=== PATIENT | female | born 1965 | race Caucasian/White ===

== ENCOUNTER 2016-09-16 13:24 | Emergency (ER) | payer OTHER ==
[2016-09-16] MEDS ORDERED: NORMAL SALINE 10 ML SYRINGE FLUSH IVP PRN (13:41)
[2016-09-16] MEDS ORDERED: Sodium Chloride 0.9% 500 ML PRIMARY IV ONE (13:41)
[2016-09-16] MEDS ORDERED: diphenhydrAMINE 50 MG/1 ML VIAL IVP ONE (13:41)
[2016-09-16] MEDS ORDERED: Prochlorperazine Edisylate Inj 10mg/2ml vial IVP ONE (13:41)
[2016-09-16 13:57] VITALS: RESP 16; TEMP 98.4
[2016-09-16 14:22] LABS: BASOPHILS # (AUTO) 0.03 10*3/UL; BASOPHILS % (AUTO) 0.2 % (0-1); EOSINOPHILS # (AUTO) 0 10*3/UL; EOSINOPHILS % (AUTO) 0 % (0-8); HEMATOCRIT 53.5 % (37.0-47.0); HEMOGLOBIN 18.1 g/dL (12.0-16.0); LYMPHOCYTES # (AUTO) 1.67 10*3/uL; MEAN CORPUSCULAR HEMOGLOBIN 33.3 PG (27-31); MEAN CORPUSCULAR HGB CONC 33.8 g/dL (33-37); MEAN PLATELET VOLUME 10.6 FL (7.4-12.2); MONOCYTES # (AUTO) 1.41 10*3/UL (0.3-0.8); MONOCYTES % (AUTO) 7.5 % (5-15); NEUTROPHILS # (AUTO) 15.54 10*3/UL; RED BLOOD COUNT 5.44 10^6/uL (4.20-5.40)
[2016-09-16 14:28] LABS: PLATELET MORPHOLOGY COMMENT NORMAL MORPHOLOGY (NORM); RBC MORPHOLOGY COMMENT NORMAL MORPHOLOGY (NORM); WBC MORPHOLOGY COMMENT NORMAL MORPHOLOGY (NORM)
--- NOTE | 2016-09-16 14:28 | PDOC ---
Neuro Symptoms / Deficit HPI - General Chief Complaint: Neurological Complaints Stated Complaint: NUMBNESS, STROKE SYMPTOMS Date Seen by Provider: 09/16/16 Time Seen by Provider: 13:25 Source: POSITIVE: Patient Exam Limitations: POSITIVE: No limitations Nurse's Notes Reviewed & Considered: Yes - History of Present Illness Initial Comments: The patient is a 51-year-old female who presents to the emergency department with the chief complaint of headache. She states that she has known issues with her neck and back and is currently in the process of being scheduled to have surgery on her lower neck and upper back per Dr. Alejo in [place]. She states this is to remove a cyst along the spine. She also has known disc issues. She states that yesterday she moved her arm and felt a pop in the right side of her neck. Afterward she had some increased numbness in her right arm. She was evaluated at the hospital in [place] and diagnosed with a cervical radiculopathy. She was given a shot of Solu-Medrol as well as Dilaudid there. She states when she went home she was feeling good. Last night however she had development of headache which is primarily right-sided and behind her right eye. She was able to sleep and when she is sleeping her pain seems less however when she gets up and moves around the pain intensifies. She has continued pain behind her right eye as well as a little bit of numbness sensation around the right eye. She is sensitive to light as well. She also feels somewhat dizzy when she stands up. She denies any associated chest pain or shortness of breath. She does have a history of factor V Leiden deficiency and has had 2 previous strokes. In addition she has a known aortic aneurysm which is currently being monitored and is not large enough to require surgery yet. She is normally on a blood thinner however she has been off for 2 days secondary to her upcoming neck and back surgery. She has had multiple imaging studies of her neck and back recently. She is somewhat concerned about the possibility of a recurrent stroke as well as the possibility of the steroid causing her current symptoms. - Patient Home Medications Home Medications: Home Medications Cyclobenzaprine HCl [Flexeril] 10 mg PO TID 09/16/16 Famotidine [Pepcid] 20 mg PO DAILY 09/16/16 Furosemide [Lasix] 80 mg PO DAILY 09/16/16 Gabapentin 300 mg PO TID 09/16/16 HYDROcodone/APAP 7.5/325 Tab [[place] 7.5/325 Tab] 1 - 2 tab PO Q4H PRN PRN Ibuprofen 800 mg PO QID 09/16/16 Levothyroxine Sodium 100 mcg PO DAILY 09/16/16 Methylprednisolone [Medrol] 4 mg PO DAILY 09/16/16 Nebivolol HCl [Bystolic] 50 mg PO BID 09/16/16 Prochlorperazine Maleate [Compazine] 10 mg PO Q6H PRN #10 tablet 09/16/16 oxyCODONE/APAP 5/325 Tab [Percocet 5/325 Tab] 1 tab PO Q6H PRN 09/16/16 - Patient Allergies Allergies/Adverse Reactions: Allergies Allergy/AdvReac Type Severity Reaction Status Date / Time aspirin Allergy NOT Verified 09/16/16 13:37 APPLICABLE butorphanol Allergy NOT Verified 09/16/16 13:37 APPLICABLE cephalexin monohydrate Allergy NOT Verified 09/16/16 13:37 [From Keflex] APPLICABLE ketorolac tromethamine Allergy NOT Verified 09/16/16 13:37 [From Toradol] APPLICABLE latex Allergy NOT Verified 09/16/16 13:37 APPLICABLE naproxen sodium Allergy NOT Verified 09/16/16 13:37 [From Anaprox] APPLICABLE Penicillins Allergy NOT Verified 09/16/16 13:37 APPLICABLE Sulfa (Sulfonamide Allergy NOT Verified 09/16/16 13:37 Antibiotics) APPLICABLE sumatriptan [From Imitrex] Allergy NOT Verified 09/16/16 13:37 APPLICABLE sumatriptan succinate Allergy NOT Verified 09/16/16 13:37 [From Imitrex] APPLICABLE promethazine HCl AdvReac HALLUCINATI Verified 09/16/16 14:18 [From Phenergan] ONS Past Medical History - heen HEENT History: Denies History Cardiovascular History: Hypertension, Aneurysm Additional Cardiovasular History: [place], CVA X2, CURRENT ABD ANEURYSM Respiratory History: Denies History Gastrointestinal History: Gallbladder Disease Genitourinary History: Denies History Endocrine History: Hypothyroidism Musculoskeletal History: Arthritis, Back Pain, Back Injury Prosthesis or Implant: Yes Neurological History: CVA Blood Disorders: Clotting Disorders Additional Blood Disorders History: FACTOR 5 DEFICIENCY, NOT CURRENTLY TAKING BLOOD THINNERS. Psychiatric History: Denies History Female Reproductive History: Denies History Obstetrical History: Delivery Additional Obstetrical History: X4 Cancer History: Other (please comment) In Past Year Been Physically Harmed or Verbally Threatened: No History of MDRO: No Tobacco Use: Current Every Day Smoker Alcohol Use: Rarely Substance Use Type: None Previous Surgical History: Yes Type / Date of Surgery: HYSTERECTOMY, CARDIAC STENTS X4, ABD HERNIA REPAIRS, C- SECTIONS X4, R ANKLE, BACK, NECK X3, THYROID CA, NICOL, UTERINE CA, CLOT REMOVED FROM BRAIN THROUGH FEMORAL ARTERY. Anesthesia Reactions: No Malignant Hyperthermia: No Family History of Malignant Hyperthermia: No Significant Family History: No pertinent family hx Past Medical History Reviewed: Reviewed - No Changes ROS - Limitations ROS Limitations: No Limitations Constitution: DENIES: Chills, Fever Cardiovascular: REPORTS: Edema (Chronic edema for which she takes Lasix). DENIES: Chest Pain, Heart Palpitations Respiratory: DENIES: Shortness Of Breath Neurological: REPORTS: Headache, Dizziness, Numbness (Right arm and some numbness around her right eye). DENIES: Weakness Gastrointestinal: REPORTS: Denies GI Symptoms, Nausea. DENIES: Vomitting Endocrine: REPORTS: Denies Symptoms Eyes: REPORTS: Denies Symptoms ENT: REPORTS: Denies Symptoms Skin: DENIES: Rash Neuro Symptoms / Deficit Exam - General Appearance General Appearance: POSITIVE: No Acute Distress, Alert - HEENT HEENT: POSITIVE: Head Inspection Nml, Eyes Inspection Nml, Ears Inspection Nml, Nose Inspection Nml, Pharynx Inspect. Nml - Neuro / Psych Higher Functions: POSITIVE: Oriented to Person, Oriented to Place, Oriented to Time, Normal Speech, Normal Cognition Cranial Nerves: POSITIVE: Normal As Tested Peripheral Exam: POSITIVE: Sensation Normal, Motor Normal - Neck Neck: POSITIVE: Supple. NEGATIVE: Cervical Lymphadenopathy - Respiratory Respiratory: POSITIVE: No Respiratory Distress, Breath Sounds Normal - Cardiovascular Cardiovascular: POSITIVE: Regular Rate & Rhythm, Heart Sounds Normal Peripheral Pulses: Radial (R): 2+, Radial (L): 2+ - Abdomen Abdomen: Soft: (All Quadrants), Denies Tenderness: (All Quadrants), No Distention: (All Quadrants) - Skin Skin: POSITIVE: Intact. NEGATIVE: No Rash - Extremities Extremity: Normal ROM: (All Extremities), Normal Inspection: (All Extremities) Neuro Symptom/Deficit Progress - Results Reviewed by me Xrays/CTs/US Reviewed by me: Yes Discussed with Radiologist: Yes Radiology Findings: CT scan of her head is normal per radiologist. Lab Results Reviewed: Yes Lab Results:: Laboratory Results 09/16/16 Range/Units 14:17 WBC 18.72 H (4.8-10.8) 10^3/uL RBC 5.44 H (4.20-5.40) 10^6/uL Hgb 18.1 H (12.0-16.0) g/dL Hct 53.5 H (37.0-47.0) % MCV 98.3 (81-99) FL MCH 33.3 H (27-31) PG MCHC 33.8 (33-37) g/dL RDW Std Deviation 54.8 H (39-50) fL RDW Coeff of Haider 15.1 H (11.5-14.5) % Plt Count 208 (140-350) 10*3/uL MPV 10.6 (7.4-12.2) FL Immature Gran % (Auto) 0.4 (0-5) % Neut % (Auto) 83.0 H (50-80) % Lymph % (Auto) 8.9 L (10-50) % Swisher % (Auto) 7.5 (5-15) % Eos % (Auto) 0 (0-8) % Baso % (Auto) 0.2 (0-1) % Immature Gran # (Auto) 0.07 10*3/UL Neut # (Auto) 15.54 10*3/UL Lymph # (Auto) 1.67 10*3/uL Swisher # (Auto) 1.41 H (0.3-0.8) 10*3/UL Eos # (Auto) 0 10*3/UL Baso # (Auto) 0.03 10*3/UL WBC Morphology Comment Normal morphology (NORM) Plt Morphology Comment Normal morphology (NORM) RBC Morph Comment Normal morphology (NORM) D-Dimer 0.44 (0.00-0.59) mg/L Sodium 141 (135-145) meq/L Potassium 3.6 L (3.8-5.2) meq/L Chloride 101 (98-112) meq/L Carbon Dioxide 29 (23-33) meq/L Anion Gap 11 (5-20) BUN 27 H (7-22) mg/dL Creatinine 0.9 (0.50-1.20) mg/dL Estimated GFR > 60 (>60 ml/min/1.73m(2)) BUN/Creatinine Ratio 30.00 H (6-20) Glucose 125 H (78-110) mg/dL Calculated Osmolality 297.0 H (267-292) mOsm/kg Calcium 9.7 (8.7-10.7) mg/dL Total Bilirubin 0.8 (0.3-1.2) mg/dL AST 35 (8-39) IU/L ALT 50 (9-52) IU/L Alkaline Phosphatase 111 (38-126) IU/L C-Reactive Protein 0.9 (0.0-0.9) mg/dL Total Protein 8.8 H (6.1-8.0) g/dL Albumin 4.4 (3.5-4.8) g/dL Globulin 4.4 H (2.50-4.10) g/dL Albumin/Globulin Ratio 1.00 L (1.3-2.0) mg/g Ur Collection Type Voided specimen Urine Color Yellow Urine Clarity Clear (CLEAR) Urine pH 6.0 (5.0-8.5) Ur Specific Orange 1.010 (1.005-1.030) Urine Protein Negative (NEG) mg/dl Urine Glucose (UA) Negative (NEG) mg/dL Urine Ketones Negative (NEG) Urine Occult Blood Trace-lysed H (NEG) Urine Nitrate Negative (NEG) Urine Bilirubin Negative (NEG) Urine Urobilinogen 0.2 (0.2) EU/dL Ur Leukocyte Esterase Trace (NEG) Urine RBC 0-1 (NONE) /hpf Urine WBC 0-1 (NONE) Ur Squamous Epith Cells Few (NONE) Ur Renal Epithelial Cell None (NONE) Urine Crystals None Urine Bacteria None (NONE) Urine Casts None (NONE) Urine Mucus None (NONE) Urine Trichomonas None (NONE) Urine Yeast None (NONE) Ur Culture Indicated? Culture not set - Patient's Progress MDM / ED Course: An IV was established and the patient did receive Benadryl 25 mg IV and Compazine 5 mg IV for treatment of headache. Her headache improved significantly. Her CT head was normal and her lab work was all essentially unremarkable except for an elevated white blood cell count which is thought to be secondary to administration of Solu-Medrol yesterday. At this point her headache is most consistent with a tension headache or migraine likely triggered from her neck issues. She had been prescribed a Medrol Dosepak however is reluctant to take this as she is fearful that her headache may have been triggered by some degree from the Solu-Medrol. At this point she was advised that it was reasonable to discontinue the Medrol Dosepak. She is advised to rest and push fluids. She was given a prescription for Compazine which can be used in combination with Benadryl if she develops recurrent headache. She is advised return to the emergency room if she develops any worsening headache, any worsening or change in symptoms. She is advised follow- up with primary care in 3-5 days. - Consult Counseled: POSITIVE: Patient, RE: Lab Results, RE: Radiology Results, RE: DX, RE : Need for F/U Patient Care Time - Estimated PCT Patient Care Time (In Minutes): 25 Vital Signs - VS Reviewed Vital Signs Reviewed: Yes Discharge Clinical Impression: Headache Discharge Disposition: Discharged to Home Condition: Stable Prescriptions / Orders: Prochlorperazine Maleate [Compazine] 10 mg PO Q6H PRN #10 tablet PRN Reason: Headache Patient Instructions Given at Discharge: Acute Headache (ED) Additional Instructions: The CAT scan was normal and your blood work was all essentially normal except for an elevated white blood cell count which is thought to be secondary to the administration of steroid yesterday. The headache is most likely a tension headache or migraine headache triggered by her neck. It is also possible that the steroid dose could've contributed some to the headache. Because of this concern it would be okay to discontinue the Medrol dose pack for now. Recommend rest and push fluids as this will most likely alleviate the headache. You have been prescribed Compazine 10 mg which can be taken in combination with Benadryl 25-50 mg as needed for recurrent headache. Return to the emergency room if any worsening or change in symptoms. Follow Up With: NONE,NONE [Primary Care Provider] -
[2016-09-16 14:30] LABS: BILIRUBIN,URINE NEGATIVE (NEG); CLARITY,URINE CLEAR (CLEAR); COLOR,URINE YELLOW; GLUCOSE, URINE (UA) NEGATIVE (NEG); NITRATE,URINE NEGATIVE (NEG); OCCULT BLOOD,URINE Trace-lysed (NEG); PROTEIN,URINE NEGATIVE (NEG); UROBILINOGEN,URINE 0.2 EU/dL (0.2)
[2016-09-16 14:34] LABS: URINE SAMPLE TYPE VOIDED SPECIMEN
--- NOTE | 2016-09-16 14:34 | DI ---
CT HEAD SCAN WITHOUT IV CONTRAST, 09/16/2016 1:42 PM : Clinical History: Headache. Previous Exam: None at this facility. Scans are obtained from the foramen magnum to the vertex without IV contrast. The 4th, 3rd, and lateral ventricles are of normal size, shape, position, and contour for the patient 's age. There are no abnormal areas of increased or decreased density. Specifically, there is no evid ence of an acute hemorrhagic or bland infarct. There is mild cerebral atrophy appropriate for the pat ient's age. There are no extracerebral mantles or shift of the midline structures. Bone window evalua tion is normal. The paranasal sinuses are normal. READIN. Normal non contrast CT head scan. 2. Mild cerebral atrophy.
[2016-09-16 14:35] LABS: RBC,URINE 0-1 /hpf; SQUAMOUS EPITHELIAL CELL,UR FEW; WBC,URINE 0-1
[2016-09-16 14:37] LABS: BLOOD UREA NITROGEN 27 mg/dL (7-22); C-REACTIVE PROTEIN 0.9 mg/dL (0.0-0.9); CALCIUM 9.7 mg/dL (8.7-10.7); EST GLOMERULAR FILTRATION > 60 (>60 ml/min/1.73m(2)); SERUM ALBUMIN 4.4 g/dL (3.5-4.8)
== END 2016-09-16 15:02 | disposition home or self-care (01) ==
LOC: ER 13:24
DX: R51 Headache (principal); R20.0 Anesthesia of skin; R42 Dizziness and giddiness; D68.51 Activated protein C resistance; Z72.0 Tobacco use
CPT/HCPCS: 70450; 80053; 81001; 81003; 85025; 85379; 86140; 96361; 96374; 96375; 99283 ×2; J1200; J0780; J7030

== ENCOUNTER 2018-06-24 19:05 | Observation (INO) ==
[2018-06-24] MEDS ORDERED: Sodium Chloride 0.9% 1,000 ML PRIMARY IV ONE (19:19)
[2018-06-24] MEDS ORDERED: MORPHINE SULFATE 4 MG/1 ML IVP ONE (19:19)
[2018-06-24] MEDS ORDERED: ONDANSETRON 4 MG/2 ML VIAL IVP ONE (19:19)
[2018-06-24] MEDS ORDERED: LORazepam 2 MG/1 ML VIAL IVP ONE (19:19)
[2018-06-24] MEDS ORDERED: NITROGLYCERIN 0.4 MG SL TAB (BOTTLE OF 3) SL ONE (19:21)
--- NOTE | 2018-06-24 19:24 | PDOC ---
Chest Pain HPI - General Chief Complaint: Chest Pain Stated Complaint: heart palpitions Date Seen by Provider: 06/24/18 Time Seen by Provider: 19:18 Source: Patient Exam Limitations: POSITIVE: No limitations Treatment Prior to Arrival: REPORTS: None Nurse's Notes Reviewed & Considered: Yes - History of Present Illness Initial Comments: This is a well-developed, obese, 53-year-old female, complaining of chest pain and shortness of breath. Patient with history of 2 MIs, 4 cardiac stents, and DVT comes in complaining of chest pain and shortness of breath that is been ongoing for 1 week and getting worse. Patient states it started out as palpitations of her heart and has progressed to chest pain that she describes as pressure with radiation to her shoulder as well as shortness of breath. She den ies any headache, no sore throat, no nausea vomiting or diarrhea, no rashes, no myalgias or arthralgias. Body Location Affected: REPORTS: Chest Timing: REPORTS: Constant, Changing Over Time Duration: >1 week Severity: Severe Context: REPORTS: Activity, Exertion Quality: REPORTS: "Pain", Pressure Radiation: REPORTS: Shoulder (L) Associated Symptoms: REPORTS: Shortness of Breath Modifying Factors: improves with: None Reported Similar Symptoms Previously: Yes Recently seen/treated/hospitalized: No Any Prior Injuries Related to Current Complaint?: Yes (2 myocardial infarctions and cardiac stents) - Patient Home Medications Home Medications: Home Medications Furosemide [Lasix] 80 mg PO DAILY 09/16/16 Gabapentin 300 mg PO TID 09/16/16 HYDROcodone/APAP 7.5/325 Tab [[place] 7.5/325 Tab] 1 - 2 tab PO Q4H PRN PRN 09/16/16 Ibuprofen 800 mg PO QID 09/16/16 Levothyroxine Sodium 200 mcg PO DAILY 09/16/16 Hydrocodone/Acetaminophen [Hydrocodon-Acetaminoph 7.5-325] 1 ea PO Q8H PRN #25 tab 06/25/17 Albuterol 17 gm IH PRN PRN 04/06/18 Budesonide/Formoterol Fumarate [SYMBICORT] 160 mcg INH PRN PRN 04/06/18 Clopidogrel Bisulfate [Plavix] 75 mg PO DAILY 04/06/18 Warfarin Sodium [Coumadin] 5 mg PO DAILY 04/06/18 Warfarin Sodium [Coumadin] 10 mg PO DAILY 04/06/18 - Patient Allergies Allergies/Adverse Reactions: Allergies Allergy/AdvReac Type Severity Reaction Status Date / Time Penicillins Allergy Severe Anaphylaxis Verified 06/24/18 19:45 Sulfa (Sulfonamide Allergy Severe Anaphylaxis Verified 06/24/18 19:45 Antibiotics) aspirin Allergy NOT Verified 06/24/18 19:45 APPLICABLE butorphanol Allergy NOT Verified 06/24/18 19:45 APPLICABLE cephalexin monohydrate Allergy ITCHING Verified 06/24/18 19:45 [From Keflex] ketorolac tromethamine Allergy NOT Verified 06/24/18 19:45 [From Toradol] APPLICABLE latex Allergy NOT Verified 06/24/18 19:45 APPLICABLE naproxen sodium Allergy NOT Verified 06/24/18 19:45 [From Anaprox] APPLICABLE sumatriptan [From Imitrex] Allergy NOT Verified 06/24/18 19:45 APPLICABLE sumatriptan succinate Allergy NOT Verified 06/24/18 19:45 [From Imitrex] APPLICABLE prednisone AdvReac Intermediate HIVES Verified 06/24/18 19:45 fentanyl AdvReac NOT Verified 06/24/18 19:45 [From Sublimaze (PF)] APPLICABLE promethazine HCl AdvReac HALLUCINATI Verified 06/24/18 19:45 [From Phenergan] ONS Past Medical History - heen HEENT History: Denies History Cardiovascular History: Hypertension, Aneurysm Additional Cardiovasular History: CT, CVA X2, CURRENT ABD ANEURYSM Respiratory History: Home Oxygen Use Additional Respiratory History: INTUBATED 04/21 Gastrointestinal History: Gallbladder Disease Genitourinary History: Denies History Endocrine History: Hypothyroidism Musculoskeletal History: Arthritis, Back Pain, Back Injury Prosthesis or Implant: Yes Neurological History: CVA Blood Disorders: Clotting Disorders Additional Blood Disorders History: FACTOR 5 DEFICIENCY, Psychiatric History: Denies History Cancer History: Other (please comment) History of MDRO: No Alcohol Use: Rarely In the Past 12 Months, Have Used or Abuse Any Substance: None Previous Surgical History: Yes Type / Date of Surgery: HYSTERECTOMY, CARDIAC STENTS X4, ABD HERNIA REPAIRS, C- SECTIONS X4, R ANKLE, BACK, NECK X3, THYROID CA, NICOL, UTERINE CA, CLOT REMOVED FROM BRAIN THROUGH FEMORAL ARTERY. Anesthesia Reactions: No Malignant Hyperthermia: No Significant Family History: No pertinent family hx ROS - Limitations ROS Limitations: No Limitations Constitution: REPORTS: Denies Symptoms Cardiovascular: REPORTS: Chest Pain Respiratory: REPORTS: Shortness Of Breath Neurological: REPORTS: Denies Neuro Symptoms Gastrointestinal: REPORTS: Denies GI Symptoms Endocrine: REPORTS: Denies Symptoms Musculoskeletal: REPORTS: Denies MS Symptoms Genitourinary: REPORTS: Denies Symptoms Eyes: REPORTS: Denies Symptoms ENT: REPORTS: Denies Symptoms Skin: REPORTS: Denies Skin Symptoms Lympathic: REPORTS: Denies Lympathic Symptoms Immunologic: POSITIVE: Denies Symptoms Psychiatric: POSITIVE: Anxiety Chest Pain PE - General Appearance General Appearance: REPORTS: Alert, Cooperative, No Evidence of Trauma, Severe Distress - HEENT HEENT: POSITIVE: Head Inspection Nml, Eyes Inspection Nml, Ears Inspection Nml, Nose Inspection Nml, Oral/Dental Inspect. Nml, Pharynx Inspect. Nml, PERRL, EOMI - Neck Neck: REPORTS: Normal Inspection - Respiratory Respiratory: REPORTS: No Respiratory Distress, Chest Non-Tender, Other (Decreased respiratory excursion with diminished breath sounds bilaterally) - Cardiovascular Cardiovascular: REPORTS: Regular Rate and Rhythm, Heart Sounds Normal, Strong Pulses, No Murmur, No Gallop, No Friction Rub, No JVD Peripheral Pulses: Radial (L): 3+ - Abdomen Abdomen: Soft: (All Quadrants), Normal Bowel Sounds: (All Quadrants), Denies Tenderness: (All Quadrants), No Splenomegaly: (All Quadrants), No Hepatomegaly: (All Quadrants), No Guarding: (All Quadrants), No Rebound: (All Quadrants), No Palpable Pulse: (All Quadrants), No Palpabale Mass: (All Quadrants), No Distention: (All Quadrants), No Rigidity: (All Quadrants) - Skin Skin: REPORTS: Intact, Normal For Race, Warm, Dry, No Rash - Extremities Extremity: Non-Tender: (All Extremities), Normal ROM: (All Extremities), Normal Inspection: (All Extremities), Pelvis Stable: (All Extremities) - Neurological / Psychological Neurological: POSITIVE: Affect Apporpriate, Oriented X3, Motor Normal, Sensation Normal Chest Pain Progress - Results Reviewed by me Xrays/CTs/US Reviewed by me: Yes Discussed with Radiologist: Yes Lab Results Reviewed by Me: Yes CBC and BMP: 06/24/18 19:25 06/24/18 19:25 Lab Results:: Laboratory Results 1206/24/18 06/24/18 19:25 19:25 19:25 WBC 7.84 RBC 5.69 H Hgb 14.4 Hct 45.5 MCV 80.0 L MCH 25.3 L MCHC 31.6 L RDW Std Deviation 67.9 H RDW Coeff of Haider 23.7 H Plt Count 214 MPV 10.6 Immature Gran % (Auto) 0.3 Neut % (Auto) 63.5 Lymph % (Auto) 25.4 [place] % (Auto) 7.7 Eos % (Auto) 2.7 Baso % (Auto) 0.4 Immature Gran # (Auto) 0.02 Neut # (Auto) 4.99 Lymph # (Auto) 1.99 [place] # (Auto) 0.60 Eos # (Auto) 0.21 Baso # (Auto) 0.03 WBC Morphology Comment Normal morphology Plt Morphology Comment See comments RBC Morph Comment Normal morphology D-Dimer 0.39 Sodium 143 Potassium 3.4 L Chloride 106 Carbon Dioxide 28 Anion Gap 9 BUN 24 H Creatinine 0.9 Estimated GFR > 60 BUN/Creatinine Ratio 26.66 H Glucose 110 Calculated Osmolality 300.0 H Calcium 9.6 Magnesium 1.9 Total Bilirubin 0.7 AST 48 H ALT 56 H Alkaline Phosphatase 131 H CK-MB (CK-2) Troponin I Handheld C-Reactive Protein 1.0 H NT-Pro-B Natriuret Pep 98.1 Total Protein 9.1 H Albumin 4.6 Globulin 4.5 H Albumin/Globulin Ratio 1.00 L TSH 06/24/18 06/24/18 19:25 19:25 WBC RBC Hgb Hct MCV MCH MCHC RDW Std Deviation RDW Coeff of Haider Plt Count MPV Immature Gran % (Auto) Neut % (Auto) Lymph % (Auto) [place] % (Auto) Eos % (Auto) Baso % (Auto) Immature Gran # (Auto) Neut # (Auto) Lymph # (Auto) [place] # (Auto) Eos # (Auto) Baso # (Auto) WBC Morphology Comment Plt Morphology Comment RBC Morph Comment D-Dimer Sodium Potassium Chloride Carbon Dioxide Anion Gap BUN Creatinine Estimated GFR BUN/Creatinine Ratio Glucose Calculated Osmolality Calcium Magnesium Total Bilirubin AST ALT Alkaline Phosphatase CK-MB (CK-2) 0.73 Troponin I Handheld 0.010 C-Reactive Protein NT-Pro-B Natriuret Pep Total Protein Albumin Globulin Albumin/Globulin Ratio TSH 1.51 - Patient's Progress Re-Examine Time: 20:48 Status: POSITIVE: Improved - Consult Consult (If Yes, Name of Consulting MD & Time Called): Yes (Dr. Satnos, cardiology. Dr. Barrett, hospitalist) Consulting MD will see pt:: POSITIVE: [facility] Admit Counseled: POSITIVE: Patient, RE: Lab Results, RE: Radiology Results, RE: DX, RE: Need for F/U Patient Care Time - Estimated PCT Patient Care Time (In Minutes): 45 Vital Signs - VS Reviewed Vital Signs Reviewed: Yes Discharge Clinical Impression: Chest pain Discharge Disposition: Admit to Observation Condition: Stable Patient Instructions Given at Discharge: Angina (ED) Follow Up With: RAMAN RUIZ [Primary Care Provider] - Date Decision to Admit to Inpatient: 06/24/18 Time Decision to Admit to Inpatient: 20:48
[2018-06-24 19:29] LABS: BASOPHILS # (AUTO) 0.03 10*3/UL; BASOPHILS % (AUTO) 0.4 % (0-1); EOSINOPHILS # (AUTO) 0.21 10*3/UL; EOSINOPHILS % (AUTO) 2.7 % (0-8); Hematocrit [HCT] 45.5 % (37.0-47.0); Hemoglobin [HGB] 14.4 g/dL (12.0-16.0); LYMPHOCYTES # (AUTO) 1.99 10*3/uL; MEAN CORPUSCULAR HEMOGLOBIN 25.3 PG (27-31); MEAN CORPUSCULAR HGB CONC 31.6 g/dL (33-37); MEAN PLATELET VOLUME 10.6 FL (7.4-12.2); MONOCYTES % (AUTO) 7.7 % (5-15); NEUTROPHILS # (AUTO) 4.99 10*3/UL; NEUTROPHILS % (AUTO) 63.5 % (50-80); RED BLOOD COUNT 5.69 10^6/uL (4.20-5.40)
[2018-06-24 19:39] LABS: BLOOD UREA NITROGEN 24 mg/dL (7-22); BUN/CREATININE RATIO 26.66 (6-20); SERUM ALBUMIN 4.6 g/dL (3.5-4.8)
[2018-06-24 19:46] LABS: PLATELET MORPHOLOGY COMMENT SEE COMMENTS (NORM); RBC MORPHOLOGY COMMENT NORMAL MORPHOLOGY (NORM); WBC MORPHOLOGY COMMENT NORMAL MORPHOLOGY (NORM)
--- NOTE | 2018-06-24 20:22 | DI ---
EXAM: XR Chest, 1 View CLINICAL HISTORY: ITS.REASON cp Physician Notes: Tech Comments: TECHNIQUE: Frontal view of the chest. COMPARISON: 05/18/18 FINDINGS: Lungs: Subsegmental atelectasis in the lower lungs. Slight interstitial prominence. Pleural space: Unremarkable. No pneumothorax. Heart: Cardiomegaly. Pulmonary venous congestion. Mediastinum: Unremarkable. Bones/joints: Unremarkable. IMPRESSION: 1. Cardiomegaly with pulmonary venous congestion. Slight interstitial prominence could indicate early/mild edema. 2. Mild subsegmental atelectasis. No visualized consolidation or significant effusion currently.
--- NOTE | 2018-06-24 21:25 | EKG ---
[address] [place] [address] Measurements Intervals [place] Rate: 95 P: 55 OR: 200 QRS: 87 QRSD: 116 T: 30 QT: 384 QTc: 437 Interpretive Statements SINUS RHYTHM WITH OCCASIONAL VENTRICULAR PREMATURE COMPLEXES LEFT ATRIAL ENLARGEMENT INCOMPLETE RIGHT BUNDLE BRANCH BLOCK ST DEVIATION AND MODERATE T-WAVE ABNORMALITY, CONSIDER ANTERIOR ISCHEMIA Compared to ECG 05/03/2018 22:18:04 Ventricular premature complex(es) now present Incomplete right bundle-branch block now present Possible ischemia now present First degree AV block no longer present T-wave abnormality still present Electronically Signed On 06-25-18 14:06:[address] [facility] by Lars Patel [email or web address]
[2018-06-24 21:27] LABS: VENOUS PH 7.46 (7.32-7.42)
--- NOTE | 2018-06-24 21:45 | PDOC ---
HPI - History of Present Illness Date of Service: 06/24/18 Time of Service: 22:00 Chief Complaint: Episode of chest pain resolved. History of Present Illness: This is a 53 years old female with medical history significant for history of hypertension, coronary artery disease with previous DE had four previous stents the last one was April 2017 done in [place], abdominal aortic aneurysm size about 5.2 cm she's been followed up in [place], COPD on oxygen, hypothyroidism on replacement, chronic pain syndrome who presented to the hospital with history of chest pain felt in the anterior chest described as something sitting on her chest and felt also in the neck with shortness of breath, dizziness and nausea the episode lasted about 10 minutes. She said she was watching TV when this thing happened. She did report that she started to have symptoms since she was charged from [place] back in early May. She noticed the symptoms to happen after the dosage of the levothyroxine increased from 100 MCG to 125 MCG a day. She's been having the pain in the chest since mid-May having it maybe every other day, it would last for a few minutes and resolve. About 3 weeks ago she had an episode that lasted for about 2 hours for which she took nitroglycerin after her son convincing her to do that. She was in [place] as a result of her having a respiratory failure and TIA she needed intubation and she stayed in [place] for about 11 days. She was on a vent for 4 days. When she came into the ER this time the blood pressure was elevated she was given morphine and Ativan and nitroglycerin. She feels better now compared to when she came in. She did say that her physician cut back on the dosage of her pain medication from 2 tab 4 times a day to 1 tab 4 times a day after she was discharged from [facility]. The last time she had a pain medication was this morning and she ran out on those. She contacted her primary who wrote a prescription for Catapres and Vistaril. She is due for refilling of her medication on Wednesday. Past Medical History Medical History: 1. Coronary artery disease with 2 previous DE that required stents. The last one was April 2017 done in [place]. She had a total of 4 stents according to her. 2. History of abdominal aortic aneurysm being followed up in [place] this was discovered 2 years ago, she supposed to see a vascular surgeon July 18. 3. History of COPD on oxygen between 4-6 L a minute. 4. History of hypertension. 5. 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 6. TIA in April 2018. 7. Respiratory failure secondary to TIA and fluid overloaded sounded that needed intubation in April she was transferred to [facility] stayed there for about 11 days. She was intubated for about 4 days. 8. History of thyroid cancer that needed thyroidectomy currently on thyroid replacement Surgical History: 1. History of 3 previous back surgeries. 2. Hysterectomy. 3. Thyroidectomy for thyroid cancer. 4. Pertinent Family History: Positive family history of coronary artery disease Past Social History: Lives in [place] with her son. Currently smoke half a pack a day that lasted 2 days, doesn't drink, she used to do drugs that was more than 20 years ago. Tobacco Use: Current Every Day Smoker Do you dip or chew tobacco: No In the Past 12 Months, Have Used or Abuse Any of the Following Substance: None Alcohol Use: None Medication / Allergies Home Medications: Home Medications Medication Instructions Recorded Confirmed Type Furosemide [Lasix] 80 mg PO DAILY 09/16/16 06/24/18 History Gabapentin 100 mg PO TID 09/16/16 06/24/18 History HYDROcodone/APAP 7.5/325 Tab 1 - 2 tab PO Q4H PRN PRN 09/16/16 06/24/18 History [[place] 7.5/325 Tab] Ibuprofen 800 mg PO QID 09/16/16 06/24/18 History Levothyroxine Sodium 125 mcg PO DAILY 09/16/16 06/24/18 History Hydrocodone/Acetaminophen 1 ea PO Q8H PRN #25 tab 06/25/17 06/24/18 Rx [Hydrocodon-Acetaminoph 7.5-325] Albuterol 17 gm IH PRN PRN 04/06/18 06/24/18 History Budesonide/Formoterol Fumarate 160 mcg INH PRN PRN 04/06/18 06/24/18 History [SYMBICORT] Clopidogrel Bisulfate [Plavix] 75 mg PO DAILY 04/06/18 06/24/18 History Warfarin Sodium [Coumadin] 7.5 mg PO DAILY 04/06/18 06/24/18 History Warfarin Sodium [Coumadin] 15 mg PO DAILY 04/06/18 06/24/18 History Metoprolol Succinate [Toprol XL] 50 mg PO BID 06/24/18 06/24/18 History Allergies/Adverse Reactions: Allergies Allergy/AdvReac Type Severity Reaction Status Date / Time Penicillins Allergy Severe Anaphylaxis Verified 06/25/18 06:41 Sulfa (Sulfonamide Allergy Severe Anaphylaxis Verified 06/25/18 06:41 Antibiotics) aspirin Allergy NOT Verified 06/25/18 06:41 APPLICABLE butorphanol Allergy NOT Verified 06/25/18 06:41 APPLICABLE cephalexin monohydrate Allergy ITCHING Verified 06/25/18 06:41 [From Keflex] ketorolac tromethamine Allergy NOT Verified 06/25/18 06:41 [From Toradol] APPLICABLE latex Allergy NOT Verified 06/25/18 06:41 APPLICABLE naproxen sodium Allergy NOT Verified 06/25/18 06:41 [From Anaprox] APPLICABLE sumatriptan [From Imitrex] Allergy NOT Verified 06/25/18 06:41 APPLICABLE sumatriptan succinate Allergy NOT Verified 06/25/18 06:41 [From Imitrex] APPLICABLE prednisone AdvReac Intermediate HIVES Verified 06/25/18 06:41 fentanyl AdvReac NOT Verified 06/25/18 06:41 [From Sublimaze (PF)] APPLICABLE promethazine HCl AdvReac HALLUCINATI Verified 06/25/18 06:41 [From Phenergan] ONS Review of Systems - Review of Systems All Systems: Reviewed & No Additional Complaints Except as Stated Exam - Vitals Vital Signs: Vital Signs Temperature 98.1 F Temperature Source Temporal Artery Scan Pulse Rate [Pulse Oximeter] 101 Respiratory Rate 20 Blood Pressure [Right Arm] 157/114 Pulse Ox 94 Oxygen Flow Rate 4 Oxygen Delivery Method Nasal Cannula Height 5 ft 3 in Weight 296 lb - General General Appearance: No Acute Distress, Cooperative, Morbidly Obese - Head Head Exam: Normal Inspection - Eye Eye Exam: POSITIVE: Normal Appearance - ENT ENT Exam: POSITIVE: Normal Exam - Neck Neck Exam: Normal Inspection - Respiratory Additional Respiratory Exam Details: Decreased air entry otherwise clear - GI/Abdominal GI/Abdominal Exam: POSITIVE: Normal Bowel Sounds, Non Tender, Non Distended, Soft, No Organomegaly - Rectal Rectal Exam: POSITIVE: Deferred - External Exam: POSITIVE: Deferred - Extremities Extremities Exam: POSITIVE: Normal Inspection Additional Extremities Exam Details: Some chronic dermatitic changes noted. - Back Back Exam: POSITIVE: Normal Inspection - Neurological Neurological Exam: POSITIVE: Alert, Oriented x 3, CN II-XII Intact - Psychiatric Psychiatric Exam: POSITIVE: Normal Affect Results - Labs CBC and BMP: 06/24/18 19:25 06/24/18 19:25 - Imaging Status: Report Reviewed by Me (Chest X ray 1. Cardiomegaly with pulmonary venous congestion. Slight interstitial prominence could indicate early/mild edema. 2. Mild subsegmental atelectasis. No visualized consolidation or significant effusion currently.) Assessment and Plan - Patient Problems (1) Chest pain Current Visit: Yes Status: Acute Comment: The episode that she described looks like anginal pain. I did tell her that her pain is suggestive of coronary artery disease. In addition to continue her beta delia I think will add long-acting nitrates to her medication. She is on Plavix continue. She said she used to be on long-acting nitrate and they discontinued that back in April 2017 but she is not clear on why. I think we will also lower the dosage of the levothyroxine as her symptoms started after the dosage of levothyroxine was increased. That may put more demand on the myocardium and be responsible for a demand ischemia. In addition to repeating her enzymes I did suggest because of her complex medical history is to do a nu clear stress test. She declined. She said she will follow-up with her grain inspector on the . Code(s): R07.9 - Chest pain, unspecified (2) Hypokalemia Current Visit: No Status: Acute Comment: We'll give her additional dose of potassium tonight. Code(s): E87.6 - Hypokalemia (3) Chronic pain syndrome Current Visit: Yes Status: Acute Comment: Continue with her hydrocodone. Code(s): G89.4 - Chronic pain syndrome (4) Hypertension Current Visit: Yes Status: Acute Comment: She is on Lasix and metoprolol. Will add Imdur for her chest pain and that's probably help with blood pressure. Code(s): I10 - Essential (primary) hypertension (5) History of DVT (deep vein thrombosis) Current Visit: Yes Status: Acute Comment: Continue Coumadin Code(s): Z86.718 - Personal history of other venous thrombosis and embolism (6) History of COPD Current Visit: Yes Status: Acute Comment: Continue inhalers Code(s): Z87.09 - Personal history of other diseases of the respiratory system (7) Hypothyroidism Current Visit: Yes Status: Acute Comment: Since her symptoms started after increasing the dosage of the levthyroxine I think we'll cut back on the dosage of the dose that she was on before as I said as may be her symptoms due to demand ischemia rather than azar damion ischemia. Code(s): E03.9 - Hypothyroidism, unspecified
[2018-06-24 22:03] LABS: BILIRUBIN,URINE NEGATIVE (NEG); CLARITY,URINE CLEAR (CLEAR); COLOR,URINE YELLOW (Y); GLUCOSE, URINE (UA) NEGATIVE (NEG); OCCULT BLOOD,URINE NEGATIVE (NEG); PROTEIN,URINE NEGATIVE (NEG); UROBILINOGEN,URINE 0.2 EU/dL (0.2)
[2018-06-24] MEDS ORDERED: NITROGLYCERIN 0.4 MG SL TAB (BOTTLE OF 3) SL PRN (22:37)
[2018-06-24] MEDS ORDERED: LIDOCAINE W/ SODIUM BICARB 0.5 ML SYR SUBD PRN (22:37)
[2018-06-24] MEDS ORDERED: CALCIUM CARBONATE 500 MG (TUMS) CHEWABLE TABLET PO PRN (22:37)
[2018-06-24 22:47] LABS: URINE SAMPLE TYPE CLEAN CATCH URINE
[2018-06-24 22:48] LABS: BACTERIA,URINE MANY
[2018-06-24] MEDS ORDERED: POTASSIUM CHLORIDE 20 MEQ TAB PO ONE (22:48)
[2018-06-24] MEDS: Metoprolol TARTRATE Tab 50 MG TAB PO SCH (23:26)
[2018-06-24] MEDS: GABAPENTIN 300 MG CAPSULE PO SCH (23:26)
[2018-06-24] MEDS: HYDROcodone-APAP 7.5 MG-325 MG TABLET PO PRN (23:26)
[2018-06-25] MEDS ORDERED: LEVOTHYROXINE 100 MCG TABLET PO SCH (05:30)
[2018-06-25] MEDS: HYDROcodone-APAP 7.5 MG-325 MG TABLET PO PRN ×2 (05:48→12:10)
[2018-06-25] MEDS ORDERED: FUROSEMIDE 40 MG TABLET PO SCH (07:00)
[2018-06-25] MEDS ORDERED: LEVALBUTEROL HCL 0.63 MG/3 ML NEB PRN (08:29)
[2018-06-25] MEDS ORDERED: POTASSIUM CHLORIDE 20 MEQ TAB PO SCH (09:00)
[2018-06-25] MEDS ORDERED: ISOSORBIDE MONONITRATE 30 MG SR 24H TABLET PO SCH (09:00)
[2018-06-25] MEDS ORDERED: CLOPIDOGREL 75 MG TABLET PO SCH (09:00)
[2018-06-25] MEDS ORDERED: GABAPENTIN 300 MG CAPSULE PO SCH (09:00)
[2018-06-25] MEDS: GABAPENTIN 300 MG CAPSULE PO SCH (09:14)
[2018-06-25] MEDS: Metoprolol TARTRATE Tab 50 MG TAB PO SCH (09:15)
--- NOTE | 2018-06-25 10:26 | DCSUMMARY ---
Hospitalization Summary Admit Date: 06/24/2018 Discharge Date: 06/25/18 Hospital Course: Discharge diagnosis 1. Episode of chest pain resolved, enzymes negative patient declined stress test 2. Coronary artery disease status with history of previous stents before 3. History of abdominal aortic aneurysm followed up in [place] 4. History of COPD on oxygen 5. History of factor V mutation of previous DVT 6. TIA in April 2018 7. UTI 8. Respiratory failure secondary to TIA and fluid overload needed intubation and transferred to [facility] April 2018 9. Hypothyroidism 10. COPD on oxygen Hospital course This is a 53 years old female with medical history significant for history of hypertension, coronary artery disease with previous [facility] had four previous stents the last one was April 2017 done in [place], abdominal aortic aneurysm size about 5.2 cm she's been followed up in [place], COPD on oxygen, hypothyroidism on replacement, chronic pain syndrome who presented to the hospital with history of chest pain felt in the anterior chest described as something sitting on her chest and felt also in the neck with shortness of breath, dizziness and nausea the episode lasted about 10 minutes. She said she was watching TV when this thing happened. She did report that she started to have symptoms since she was discharged from [facility] in early May. She noticed the symptoms to happen after the dosage of the levothyroxine increased from 100 MCG to 125 MCG a day. She's been having the pain in the chest since mid-May having it maybe every other day, it would last for a few minutes and resolve. About 3 weeks ago she had an episode that lasted for about 2 hours for which she took nitroglycerin after her son convinced her to do so. She was in [place] as a result of having a respiratory failure and TIA she needed intubation and she stayed in [place] for about 11 days. She was on a vent for 4 days. When she came into the ER this time the blood pressure was elevated she was given morphine and Ativan and nitroglycerin. She felt better after admission compared to when she came in. She did say that her physician cut back on the dosage of her pain medication from 2 tab 4 times a day to 1 tab 4 times a day after she was discharged from . The last time she had a pain medication was the morning of admission and she ran out on those. She contacted her primary who wrote a prescription for Catapres and Vistaril. She is due for a refill on her medication on Wednesday. She did also report that the her symptoms started after a dosage of levothyroxin increased from 100 MCG to 125 MCG a day. We admitted her to the hospital we repeated her enzymes and cardiac enzymes remained negative. We did lower the dosage of levothyroxin to 100 MCG a day, I did add Imdur to her medication. I did suggest to her a a nuclear stress test she declined. She wants to follow-up with her clinical trial educator and she suppose to see him on the . she understands the risks. On the day of discharge she was denying complaints no more chest pain. Exam was unremarkable apart from decreased air entry. She did have a UTI we started her on antibiotics. She'll follow-up with her PCP and clinical trial educator postdischarge. I did tell her that her symptoms either due to the progression of her coronary artery disease or secondary to increased demand from changing the dosage of the levothyroxine. or could be both. She'll continue the same medication with addition imdur and decreasing the dosage of Levothyroxin . she did request some pain medication as she ran out on her medication. we Gave a prescription for 8 pills of the hydrocodone. She'll discuss her pain medication need with her primary. Laboratory Results 06/24/18 06/24/18 06/24/18 19:25 19:25 19:25 WBC 7.84 RBC 5.69 H Hgb 14.4 Hct 45.5 MCV 80.0 L MCH 25.3 L MCHC 31.6 L RDW Std Deviation 67.9 H RDW Coeff of [place] 23.7 H Plt Count 214 MPV 10.6 Immature Gran % (Auto) 0.3 Neut % (Auto) 63.5 Lymph % (Auto) 25.4 [place] % (Auto) 7.7 Eos % (Auto) 2.7 Baso % (Auto) 0.4 Immature Gran # (Auto) 0.02 Neut # (Auto) 4.99 Lymph # (Auto) 1.99 [place] # (Auto) 0.60 Eos # (Auto) 0.21 Baso # (Auto) 0.03 WBC Morphology Comment Normal morphology Plt Morphology Comment See comments RBC Morph Comment Normal morphology PT INR D-Dimer 0.39 VBG pH VBG pCO2 VBG HCO3 VBG Base Excess Sodium 143 Potassium 3.4 L Chloride 106 Carbon Dioxide 28 Anion Gap 9 BUN 24 H Creatinine 0.9 Estimated GFR > 60 BUN/Creatinine Ratio 26.66 H Glucose 110 Calculated Osmolality 300.0 H Calcium 9.6 Magnesium 1.9 Total Bilirubin 0.7 AST 48 H ALT 56 H Alkaline Phosphatase 131 H CK-MB (CK-2) Troponin I Handheld Troponin I C-Reactive Protein 1.0 H NT-Pro-B Natriuret Pep 98.1 Total Protein 9.1 H Albumin 4.6 Globulin 4.5 H Albumin/Globulin Ratio 1.00 L TSH Ur Collection Type Urine Color Urine Clarity Urine pH Ur Specific [place] Urine Protein Urine Glucose (UA) Urine Ketones Urine Occult Blood Urine Nitrate Urine Bilirubin Urine Urobilinogen Ur Leukocyte Esterase Urine RBC Urine WBC Ur Squamous Epith Cells Ur Renal Epithelial Cell Urine Crystals Urine Bacteria Urine Casts Urine Mucus Urine Trichomonas Urine Yeast Ur Culture Indicated? 06/24/18 06/24/18 06/24/18 19:25 19:25 19:25 WBC RBC Hgb Hct MCV MCH MCHC RDW Std Deviation RDW Coeff of [place] Plt Count MPV Immature Gran % (Auto) Neut % (Auto) Lymph % (Auto) [place] % (Auto) Eos % (Auto) Baso % (Auto) Immature Gran # (Auto) Neut # (Auto) Lymph # (Auto) [place] # (Auto) Eos # (Auto) Baso # (Auto) WBC Morphology Comment Plt Morphology Comment RBC Morph Comment PT INR D-Dimer VBG pH 7.46 H VBG pCO2 41 L VBG HCO3 29 H VBG Base Excess 5 H Sodium Potassium Chloride Carbon Dioxide Anion Gap BUN Creatinine Estimated GFR BUN/Creatinine Ratio Glucose Calculated Osmolality Calcium Magnesium Total Bilirubin AST ALT Alkaline Phosphatase CK-MB (CK-2) 0.73 Troponin I Handheld 0.010 Troponin I C-Reactive Protein NT-Pro-B Natriuret Pep Total Protein Albumin Globulin Albumin/Globulin Ratio TSH 1.51 Ur Collection Type Urine Color Urine Clarity Urine pH Ur Specific [place] Urine Protein Urine Glucose (UA) Urine Ketones Urine Occult Blood Urine Nitrate Urine Bilirubin Urine Urobilinogen Ur Leukocyte Esterase Urine RBC Urine WBC Ur Squamous Epith Cells Ur Renal Epithelial Cell Urine Crystals Urine Bacteria Urine Casts Urine Mucus Urine Trichomonas Urine Yeast Ur Culture Indicated? 06/24/18 06/24/18 06/25/18 19:25 22:00 01:40 WBC RBC Hgb Hct MCV MCH MCHC RDW Std Deviation RDW Coeff of [place] Plt Count MPV Immature Gran % (Auto) Neut % (Auto) Lymph % (Auto) [place] % (Auto) Eos % (Auto) Baso % (Auto) Immature Gran # (Auto) Neut # (Auto) Lymph # (Auto) [place] # (Auto) Eos # (Auto) Baso # (Auto) WBC Morphology Comment Plt Morphology Comment RBC Morph Comment PT 25.2 H INR 2.42 D-Dimer VBG pH VBG pCO2 VBG HCO3 VBG Base Excess Sodium Potassium Chloride Carbon Dioxide Anion Gap BUN Creatinine Estimated GFR BUN/Creatinine Ratio Glucose Calculated Osmolality Calcium Magnesium Total Bilirubin AST ALT Alkaline Phosphatase CK-MB (CK-2) Troponin I Handheld Troponin I < 0.012 C-Reactive Protein NT-Pro-B Natriuret Pep Total Protein Albumin Globulin Albumin/Globulin Ratio TSH Ur Collection Type Clean catch urine Urine Color Yellow Urine Clarity Clear Urine pH 6.0 Ur Specific [place] 1.015 Urine Protein Negative Urine Glucose (UA) Negative Urine Ketones Negative Urine Occult Blood Negative Urine Nitrate Positive A Urine Bilirubin Negative Urine Urobilinogen 0.2 Ur Leukocyte Esterase Negative Urine RBC None Urine WBC 4-8 H Ur Squamous Epith Cells None Ur Renal Epithelial Cell None Urine Crystals None Urine Bacteria Many H Urine Casts None Urine Mucus None Urine Trichomonas None Urine Yeast None Ur Culture Indicated? Culture set 06/25/18 07:20 WBC RBC Hgb Hct MCV MCH MCHC RDW Std Deviation RDW Coeff of [place] Plt Count MPV Immature Gran % (Auto) Neut % (Auto) Lymph % (Auto) [place] % (Auto) Eos % (Auto) Baso % (Auto) Immature Gran # (Auto) Neut # (Auto) Lymph # (Auto) [place] # (Auto) Eos # (Auto) Baso # (Auto) WBC Morphology Comment Plt Morphology Comment RBC Morph Comment PT INR D-Dimer VBG pH VBG pCO2 VBG HCO3 VBG Base Excess Sodium Potassium Chloride Carbon Dioxide Anion Gap BUN Creatinine Estimated GFR BUN/Creatinine Ratio Glucose Calculated Osmolality Calcium Magnesium Total Bilirubin AST ALT Alkaline Phosphatase CK-MB (CK-2) Troponin I Handheld Troponin I 0.014 C-Reactive Protein NT-Pro-B Natriuret Pep Total Protein Albumin Globulin Albumin/Globulin Ratio TSH Ur Collection Type Urine Color Urine Clarity Urine pH Ur Specific [place] Urine Protein Urine Glucose (UA) Urine Ketones Urine Occult Blood Urine Nitrate Urine Bilirubin Urine Urobilinogen Ur Leukocyte Esterase Urine RBC Urine WBC Ur Squamous Epith Cells Ur Renal Epithelial Cell Urine Crystals Urine Bacteria Urine Casts Urine Mucus Urine Trichomonas Urine Yeast Ur Culture Indicated? Discharge instruction Diet regular Activity as started Medications Current Medication(s) Medication Instructions Recorded Confirmed Type Furosemide [Lasix] 80 mg PO DAILY 09/16/16 06/24/18 History Gabapentin 100 mg PO TID 09/16/16 06/24/18 History Ibuprofen 800 mg PO QID 09/16/16 06/24/18 History Albuterol 17 gm IH PRN PRN 04/06/18 06/24/18 History Budesonide/Formoterol Fumarate 160 mcg INH PRN PRN 04/06/18 06/24/18 History [SYMBICORT] Clopidogrel Bisulfate [Plavix] 75 mg PO DAILY 04/06/18 06/24/18 History Warfarin Sodium [Coumadin] 15 mg PO DAILY 04/06/18 06/24/18 History Metoprolol Succinate [Toprol XL] 50 mg PO BID 06/24/18 06/24/18 History HYDROcodone/APAP 7.5/325 Tab 1 tab PO Q4-6H PRN #8 tab 06/25/18 Rx [[place] 7.5/325 Tab] Isosorbide Mononitrate ER [Imdur] 30 mg PO DAILY #30 tab.sr.24h 06/25/18 Rx Levofloxacin [Levaquin] 250 mg PO DAILY #2 tab 06/25/18 Rx Levothyroxine Sodium [Synthroid] 100 mcg PO DAILY@0530 #30 tab 06/25/18 Rx Follow-up with PCP 1-2 weeks, follow-up with clinical trial educator on 26 Condition at discharge was stable for discharge Exam - Vitals Vital Signs: Vital Signs Temperature 98.5 F Temperature Source Oral Pulse Rate [Apical] 69 Pulse Rate [Pulse Oximeter] 65 Pulse Rate 58 Respiratory Rate 16 Blood Pressure [Left Radial 112/68 Artery] Blood Pressure [Right Arm] 115/95 Pulse Ox 95 Oxygen Flow Rate 4 Oxygen Delivery Method Nasal Cannula Height 5 ft 3 in Weight 300 lb - General General Appearance: No Acute Distress, Morbidly Obese - Head Head Exam: Normal Inspection - Eye Eye Exam: POSITIVE: Normal Appearance - ENT ENT Exam: POSITIVE: Normal Exam - Neck Neck Exam: Normal Inspection - Respiratory Additional Respiratory Exam Details: decreased air entry otherwise clear - Cardiovascular Cardiovascular Exam: POSITIVE: RRR - GI/Abdominal GI/Abdominal Exam: POSITIVE: Normal Bowel Sounds, Non Tender, Non Distended, Soft, No Organomegaly - Rectal Rectal Exam: POSITIVE: Deferred - External Exam: POSITIVE: Deferred - Extremities Extremities Exam: POSITIVE: Normal Inspection - Back Back Exam: POSITIVE: Normal Inspection - Neurological Neurological Exam: POSITIVE: Alert, Oriented x 3, CN II-XII Intact, No Facial Droop, Speech Intact / Clear - Psychiatric Psychiatric Exam: POSITIVE: Normal Affect - Integumentary Integumentary Exam: POSITIVE: Normal Color Patient Problems - Patient Problem List (1) Chest pain Status: Acute Code(s): R07.9 - Chest pain, unspecified Category: Medical (2) Hypokalemia Status: Acute Code(s): E87.6 - Hypokalemia Category: Medical (3) Chronic pain syndrome Status: Acute Code(s): G89.4 - Chronic pain syndrome Category: Medical (4) Hypertension Status: Acute Code(s): I10 - Essential (primary) hypertension Category: Medical (5) History of DVT (deep vein thrombosis) Status: Acute Code(s): Z86.718 - Personal history of other venous thrombosis and embolism Category: Medical (6) History of COPD Status: Acute Code(s): Z87.09 - Personal history of other diseases of the respiratory system Category: Medical (7) Hypothyroidism Status: Acute Code(s): E03.9 - Hypothyroidism, unspecified Category: Medical
[2018-06-25] MEDS ORDERED: LEVOFLOXACIN 250 MG TABLET PO ONE (10:31)
[2018-07-01 17:56] VITALS: BP 115/82; RESP 20; TEMP 97.6; O2SAT 94
== END 2018-06-25 14:23 | disposition home or self-care (01) ==
LOC: ER 19:05 → MED/SURG 19:05
PROVIDERS: ADMIT Internal Medicine; ATTEND Internal Medicine